=== PATIENT | female | born 1985 | race Caucasian/White ===

== ENCOUNTER 2021-10-16 21:27 | Emergency (ER) | payer SELFPAY ==
[~2021-10-16] VITALS: Ht 177.8 cm; Wt 97.4 kg
[2021-10-16] MEDS ORDERED: LACTATED RINGERS 1,000 ML IV ONE (22:00)
[2021-10-16] MEDS ORDERED: HYOSCYAMINE 0.125 MG (LEVSIN) TAB SL ONE (22:00)
[2021-10-16] MEDS ORDERED: ONDANSETRON 4 MG/2 ML (SDV) Z0FRAN IVP ONE (22:00)
[2021-10-16 22:20] LABS: BASOPHILS % (AUTO) 0 % (0-10); EOSINOPHILS # (AUTO) 0.1 10^3/uL (0.0-0.3); EOSINOPHILS % (AUTO) 2 % (0-10); HEMATOCRIT 33 % (35-52); LYMPHOCYTES # (AUTO) 1.2 10^3/uL (1.0-4.0); LYMPHOCYTES % (AUTO) 24 % (12-44); MEAN CORPUSCULAR HEMOGLOBIN 27 pg (25-34); MEAN CORPUSCULAR HGB CONC 33 g/dL (32-36); MEAN CORPUSCULAR VOLUME 83 fL (80-99); MEAN PLATELET VOLUME 10.1 fL (9.0-12.2); MONOCYTES # (AUTO) 0.6 10^3/uL (0.0-1.0); MONOCYTES % (AUTO) 11 % (0-12); NEUTROPHILS # (AUTO) 3.3 10^3/uL (1.8-7.8); NEUTROPHILS % (AUTO) 63 % (42-75); PLATELET COUNT 247 10^3/uL (130-400); WHITE BLOOD COUNT 5.2 10^3/uL (4.3-11.0)
[2021-10-16 22:29] LABS: BILIRUBIN,URINE NEGATIVE (NEGATIVE); CLARITY,URINE CLEAR; COLOR,URINE YELLOW; GLUCOSE, URINE (UA) NEGATIVE (NEGATIVE); KETONES,URINE NEGATIVE (NEGATIVE); LEUKOCYTE ESTERASE ,URINE NEGATIVE (NEGATIVE); NITRITE,URINE NEGATIVE (NEGATIVE); PROTEIN,URINE 1+ (NEGATIVE)
[2021-10-16 22:37] LABS: ALBUMIN 3.5 GM/DL (3.2-4.5); BILIRUBIN,TOTAL 0.4 MG/DL (0.1-1.0); CALCIUM 8.5 MG/DL (8.5-10.1); CREATININE SERUM 0.81 MG/DL (0.60-1.30); MAGNESIUM 1.6 MG/DL (1.6-2.4); POTASSIUM 2.9 MMOL/L (3.6-5.0); TOTAL PROTEIN 6.5 GM/DL (6.4-8.2)
[2021-10-16 22:41] LABS: BACTERIA,URINE FEW /HPF; WBC,URINE RARE /HPF
[2021-10-16] MEDS ORDERED: HOLD METFORMIN - RECEIVED CONTRAST 20 ML VIAL IV SCH (23:30)
[2021-10-16] MEDS ORDERED: NS 100 ML (IVPB) BAG IV ONE (23:30)
[2021-10-16] MEDS ORDERED: IOHEXOL 350 MG/ML 100 ML (OMNIPAQUE 350) VIAL IV ONE (23:30)
--- NOTE | 2021-10-16 23:58 | ED GI ---
General Chief Complaint: Abdominal/GI Problems Stated Complaint: DIARRHEA Nursing Triage Note: PT AMBULATORY INTO ER WITH COMPLAINTS OF VOMITING, DIARRHEA, CRAMPING, HEADACHE X5 DAYS. PT STATES THAT SHE HAD NEGATIVE COVID TEST TWO DAYS AGO. Source of Information: Patient History of Present Illness Date Seen by Provider: Oct 16, 2021 Time Seen by Provider: 21:52 Initial Comments PT ARRIVES VIA POV FROM HOME WITH HER MOTHER STATES SHE STARTED GETTING SICK ON WEDNESDAY MORNING 01/12/22 C/O NAUSEA/VOMITING/DIARRHEA AND GENERALIZED ABDOMINAL CRAMPING HAS VOMITED A FEW TIMES, BUT MOSTLY IS HAVING DIARRHEA, WITH MULTIPLE EPISODES OF DIARRHEA EVERY DAY HAS HAD FEVER UP TO 101.5 C/O MILD HEADACHE PT IS DRINKING WATER, AND VOIDING NORMALLY NO PAIN / BURNING ON URINATION NO RESPIRATORY SYMPTOMS NO HISTORY OF GI PROBLEMS AND NO ABDOMINAL SURGERIES LMP 1 MONTH AGO PT WORKS AT [employer], AND HAD NEGATIVE COVID TEST DONE THERE 2 DAYS AGO PT HAS HAD COVID VACCINE X 3 NO KNOWN SICK CONTACTS OR SUSPICIOUS FOODS PCP: NONE--USED TO SEE DR. ARGUETA UNTIL SHE LEFT THE PRACTICE. Allergies and Home Medications Allergies Coded Allergies: No Known Drug Allergies (Unverified , 10/16/21) Patient Home Medication List Home Medication List Reviewed: Yes Hyoscyamine Sulfate (Levsin-Sl) 0.125 Mg Tab.subl, 0.25 MG SL Q4H Prescribed by: IRASEMA LANE on 10/17/2123 L. Acidophilus/Pectin, [place] (Acidophilus Capsule) 7.5 Mg (30 Million Cell)-100 Mg Capsule, 2 EACH PO QID Prescribed by: IRASEMA LANE on 10/17/2123 Ondansetron (Ondansetron Odt) 4 Mg Tab.rapdis, 4 MG PO Q4H Prescribed by: IRASEMA LANE on 10/17/2123 Review of Systems Review of Systems Constitutional: see HPI, fever EENTM: No Symptoms Reported Respiratory: No Symptoms Reported Cardiovascular: No Symptoms Reported Gastrointestinal: See HPI, Abdominal Pain, Diarrhea, Nausea, Poor Appetite, Vomiting Genitourinary: No Symptoms Reported Musculoskeletal: no symptoms reported Skin: no symptoms reported Psychiatric/Neurological: See HPI, Headache Endocrine: No Symptoms Reported Hematologic/Lymphatic: No Symptoms Reported Past Yzwwfyy-Pcdnjw-Vsyijv Hx Patient Social History Tobacco Use?: No Use of E-Cig and/or Vaping dev: No Substance use?: No Alcohol Use?: Yes Alcohol type: Beer, Hard Liquor, Wine Alcohol Frequency: Rarely Pt feels they are or have been: No Immunizations Up To Date Influenza Vaccine Up-to-Date: Yes; Up-to-Date COVID19 Vaccine [employer]: [employer] Past Medical History Surgeries: No Respiratory: No Cardiac: No Neurological: No : No Reproductive Disorders: No Genitourinary: No Gastrointestinal: No Musculoskeletal: No Endocrine: No HEENT: No Cancer: No Psychosocial: No Integumentary: No Blood Disorders: No Physical Exam Vital Signs Vital Signs - First Documented 10/16/21 22:23 Temp 36.0 Pulse 96 Resp 18 B/P (MAP) 136/75 (95) Pulse Ox 96 O2 Delivery Room Air Capillary Refill : Less Than 3 Seconds Height/Weight/BMI Height: '" Weight: lbs. oz. 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, no motor/sensory deficits, alert, normal mood/affect, oriented x 3 Skin: normal color, warm/dry; No rash Progress/Results/Core Measures Results/Orders Lab Results Laboratory Tests Test 10/16/21 22:06 10/16/21 22:20 Range/Units White Blood Count 5.2 4.3-11.0 10^3/uL Red Blood Count 4.03 3.80-5.11 10^6/uL Hemoglobin 11.0 L 11.5-16.0 g/dL Hematocrit 33 L 35-52 % Mean Corpuscular Volume 83 80-99 fL Mean Corpuscular Hemoglobin 27 25-34 pg Mean Corpuscular Hemoglobin Concent 33 32-36 g/dL Red Cell Distribution Width 12.3 10.0-14.5 % Platelet Count 247 130-400 10^3/uL Mean Platelet Volume 10.1 9.0-12.2 fL Immature Granulocyte % (Auto) 0 % Neutrophils (%) (Auto) 63 42-75 % Lymphocytes (%) (Auto) 24 12-44 % Monocytes (%) (Auto) 11 0-12 % Eosinophils (%) (Auto) 2 0-10 % Basophils (%) (Auto) 0 0-10 % Neutrophils # (Auto) 3.3 1.8-7.8 10^3/uL Lymphocytes # (Auto) 1.2 1.0-4.0 10^3/uL Monocytes # (Auto) 0.6 0.0-1.0 10^3/uL Eosinophils # (Auto) 0.1 0.0-0.3 10^3/uL Basophils # (Auto) 0.0 0.0-0.1 10^3/uL Immature Granulocyte # (Auto) 0.0 0.0-0.1 10^3/uL Sodium Level 133 L 135-145 MMOL/L Potassium Level 2.9 L 3.6-5.0 MMOL/L Chloride Level 99 98-107 MMOL/L Carbon Dioxide Level 23 21-32 MMOL/L Anion Gap 11 5-14 MMOL/L Blood Urea Nitrogen 6 L 7-18 MG/DL Creatinine 0.81 0.60-1.30 MG/DL Estimat Glomerular Filtration Rate 96 BUN/Creatinine Ratio 7 Glucose Level 151 H 70-105 MG/DL Calcium Level 8.5 8.5-10.1 MG/DL Corrected Calcium 8.9 8.5-10.1 MG/DL Magnesium Level 1.6 1.6-2.4 MG/DL Total Bilirubin 0.4 0.1-1.0 MG/DL Aspartate Amino Transf (AST/SGOT) 27 5-34 U/L Alanine Aminotransferase (ALT/SGPT) 48 0-55 U/L Alkaline Phosphatase 111 40-136 U/L Total Protein 6.5 6.4-8.2 GM/DL Albumin 3.5 3.2-4.5 GM/DL Amylase Level 109 25-125 U/L Lipase 302 H 8-78 U/L Serum Test, Qualitative NEGATIVE NEGATIVE Influenza Type A (RT-PCR) Not Detected Not Detecte Influenza Type B (RT-PCR) Not Detected Not Detecte SARS-CoV-2 RNA (RT-PCR) Not Detected Not Detecte Urine Color YELLOW Urine Clarity CLEAR Urine pH 6.0 5-9 Urine Specific [place] 1.025 H 1.016-1.022 Urine Protein 1+ H NEGATIVE Urine Glucose (UA) NEGATIVE NEGATIVE Urine Ketones NEGATIVE NEGATIVE Urine Nitrite NEGATIVE NEGATIVE Urine Bilirubin NEGATIVE NEGATIVE Urine Urobilinogen 0.2 < = 1.0 MG/DL Urine Leukocyte Esterase NEGATIVE NEGATIVE Urine RBC (Auto) 1+ H NEGATIVE Urine RBC 2-5 H /HPF Urine WBC RARE /HPF Urine Squamous Epithelial Cells 2-5 /HPF Urine Crystals NONE /LPF Urine Bacteria FEW H /HPF Urine Casts NONE /LPF Urine Mucus SMALL H /LPF Urine Culture Indicated YES My Orders Orders - IRASEMA LANE DO Ed Iv/Invasive Line Start (10/16/21 21:53) Monitor-Rhythm Ecg Trace Only (10/16/21 21:53) Amylase (10/16/21 21:53) Cbc With Automated Diff (10/16/21 21:53) Comprehensive Metabolic Panel (10/16/21 21:53) Hcg,Qualitative Serum (10/16/21 21:53) Lipase (10/16/21 21:53) Magnesium (10/16/21 21:53) Ua Culture If Indicated (10/16/21 21:53) Ondansetron Injection (Zofran Injectio (10/16/21 22:00) Hyoscyamine Sl Tablet (Levsin Sl Tablet) (10/16/21 22:00) Ed Iv/Invasive Line Start (10/16/21 21:53) Lactated Ringers (Lr 1000 Ml Iv Solution (10/16/21 22:00) Covid 19 Inhouse Test (10/16/21 21:53) Influenza A And B By Pcr (10/16/21 21:53) Isolation Central Supply Req (10/16/21 21:53) Urine Culture (10/16/21 22:20) Ct Abdomen/Pelvis W (10/16/21 22:46) Iohexol Injection (Omnipaque 350 Mg/Ml 1 (10/16/21 23:30) Received Contrast (Hold Metformin- Contr (10/16/21 23:30) Ns (Ivpb) (Sodium Chloride 0.9% Ivpb Bag (10/16/21 23:30) Potassium Chloride (Tablet) (Klor Con Ta (10/17/21 00:30) Rx-Hyoscyamine Tab (Rx-Levsin Sl) (10/17/21 00:20) Rx-Ondansetron Po (Rx-Zofran Po) (10/17/21 00:20) Medications Given in ED Current Medications Medications Dose Ordered Sig/Delia Route Start Time Stop Time Status Last Admin Dose Admin Hyoscyamine Sulfate 0.25 mg ONCE ONCE SL 10/16/21 22:00 10/16/21 22:01 DC 10/16/21 22:12 0.25 MG Iohexol 100 ml ONCE ONCE IV 10/16/21 23:30 10/16/21 23:31 DC 10/16/21 23:28 100 ML Lactated Ringer's 1,000 ml @ 0 mls/hr Q0M ONCE IV 10/16/21 22:00 10/16/21 22:01 DC 10/16/21 22:12 999 MLS/HR Ondansetron HCl 4 mg ONCE ONCE IVP 10/16/21 22:00 10/16/21 22:01 DC 10/16/21 22:12 4 MG Potassium Chloride 40 meq ONCE ONCE PO 10/17/21 00:30 10/17/21 00:31 DC 10/17/21 00:32 40 MEQ Sodium Chloride 100 ml ONCE ONCE IV 10/16/21 23:30 10/16/21 23:31 DC 10/16/21 23:27 80 ML Vital Signs/I&O 10/16/21 10/17/21 22:23 00:33 Temp 36.0 Pulse 96 91 Resp 18 18 B/P (MAP) 136/75 (95) 133/77 Pulse Ox 96 97 O2 Delivery Room Air Room Air Blood Pressure Mean: 95 Progress Progress Note : Progress Note GIVEN IV FLUIDS, ZOFRAN AND LEVSIN WITH RESOLUTION OF SYMPTOMS Diagnostic Imaging Comments CT ABDOMEN/PELVIS--PER STAT RAD VIA FAX AT 0142 NON-SPECIFIC ENTERITIS/COLITIS 2.7 CM FAT CONTAINING LESION IN RIGHT KIDNEY, LIKELY ANGIOMYOLIPOMA Reviewed: Reviewed by Me Departure Impression Primary Impression: Gastroenteritis Additional Impressions: Electrolyte imbalance Elevated lipase Disposition: 01 HOME, SELF-CARE Condition: Improved Departure-Patient Inst. Decision time for Depature: 00:20 Patient Instructions: Amylase Test, Electrolyte Panel, Viral Gastroenteritis, Adult (DC) Add. Discharge Instructions: LOTS OF CLEAR LIQUIDS--WATER, BROTH, JELLO, GATORADE--DRINK EQUAL AMOUNTS OF WATER AND GATORADE BRATS DIET--BANANAS, RICE, APPLESAUCE, TOAST, SALTINES FOLLOW UP WITH OF [facility]UBIA IN 2-3 DAYS IF NO BETTER, RETURN TO ER IF WORSE All discharge instructions reviewed with patient and/or family. Voiced understanding. Scripts L. Acidophilus/Pectin, [place] (Acidophilus Capsule) 7.5 Mg (30 Million Cell)-100 Mg Capsule 2 EACH PO QID, #40 CAP Prov: IRASEMA LANE DO 10/17/21 Hyoscyamine Sulfate (Levsin-Sl) 0.125 Mg Tab.subl 0.25 MG SL Q4H, #14 TAB Prov: IRASEMA LANE DO 10/17/21 Ondansetron (Ondansetron Odt) 4 Mg Tab.rapdis 4 MG PO Q4H for Nausea/Vomiting, #10 TAB Prov: IRASEMA LANE DO 10/17/[address] DO Oct 16, 2021 23:58
[2021-10-17] MEDS ORDERED: RX-ONDANSETRON 4 MG ODT (ZOFRAN) PPK #4 PO STA (00:20)
[2021-10-17] MEDS ORDERED: RX-HYOSCYAMINE 0.125 MG SL (LEVSIN) PPK#6 SL STA (00:20)
[2021-10-17] MEDS ORDERED: L. A1CAP11 PO (00:24)
[2021-10-17] MEDS ORDERED: ONDA4TAB11 PO (00:24)
[2021-10-17] MEDS ORDERED: HYOS0.1283 SL (00:24)
[2021-10-17] MEDS ORDERED: KCL 10 MEQ TAB (MICRO K) PO ONE (00:30)
[2021-10-17 00:33] VITALS: BP 133/77
--- NOTE | 2021-10-17 05:52 | Diagnostic Imaging Report ---
PROCEDURE: CT abdomen and pelvis with contrast. TECHNIQUE: Multiple contiguous axial images were obtained through the abdomen and pelvis after administration of intravenous contrast. Auto Exposure Controls were utilized during the CT exam to meet ALARA standards for radiation dose reduction. All CT scans use one or more of the following dose optimizing techniques: automated exposure control, MA and/or KvP adjustment based on patient size and exam type or iterative reconstruction. INDICATION: 36-year-old female presents with nausea, vomiting, diarrhea and abdominal pain. COMPARISONS: None FINDINGS: Lung bases are clear. Cardiac contour is normal. Liver shows uniform attenuation. Gallbladder is nondistended. Spleen and GE junction are normal. Stomach and duodenal sweep are unremarkable. Pancreas shows sharp margins. Adrenals are normal. Kidneys appear normal in size, position and contour. There is incidental 2.5 cm angiomyolipoma in the posterior aspect of superior pole right kidney. There is no hydronephrosis or hydroureter. Both ureters are seen intermittently through their course and appear unremarkable. Bladder is nondistended. Uterus and adnexa are unremarkable. Nonopacified loops of small bowel are grossly unremarkable. There are some cecal region nodes. The appendix is not clearly delineated but there is no periappendiceal region stranding to suggest inflammatory process. There is, however some mucosal thickening of the cecum. There is some fluid and gas in the ascending and transverse colon suggesting element of enteritis. Liquid stool is seen throughout the colon to the rectum. There are few central mesenteric nodes. Visualized vasculature shows normal caliber of aorta, iliac and femoral arteries with normal origin of the visceral arteries. Bone windows show no overall gross abnormalities. IMPRESSION: 1. No evidence of cholecystitis or obstructive uropathy. 2. There is an incidental 2.5 cm angiomyolipoma in the upper pole of the right kidney. 3. There is reactive lymphadenopathy in the right lower quadrant especially the pericecal region. The appendix is not clearly delineated but there is no periappendiceal region stranding to suggest inflammatory process. There is, however some inflammatory changes in the cecum and proximal colon. There is also liquid stool throughout colon. Differential includes enteritis/colitis. Agree with [facility] report. Dictated by: Dictated on workstation # [id number]
== END 2021-10-17 00:40 | disposition home or self-care (01) ==
LOC: EDUNIT# 21:27 → ER 21:30
DX: K52.9 Noninfective gastroenteritis and colitis, unspecified (principal); E87.8 Other disorders of electrolyte and fluid balance, not elsewhere classified; R74.8 Abnormal levels of other serum enzymes; Z20.822 Contact with and (suspected) exposure to COVID-19; Z32.02 Encounter for pregnancy test, result negative
CPT/HCPCS: 36415; 74177; 80053; 81000; 82150; 83690; 83735; 84703; 85025; 87088; 87636; 93041